=== PATIENT | female | born 1985 | race Caucasian/White ===

== ENCOUNTER 2019-12-24 00:25 | Emergency (ER) | payer SELFPAY ==
[~2019-12-24] VITALS: Ht 170.2 cm; Wt 122.7 kg
[2019-12-24 00:47] VITALS: Ht 170.2 cm; Wt 122.7 kg
[2019-12-24] MEDS ORDERED: NEXIUM20 MG PO (00:48)
[2019-12-24] MEDS ORDERED: BUSPAR5 MG PO (00:49)
[2019-12-24] MEDS ORDERED: FLUTICASONE PRO16 GM NASAL (00:49)
[2019-12-24 01:29] LABS: BASOPHILS 0.1 % (0-2); EOSINOPHILS 0.2 % (0-7); HEMATOCRIT 41.8 % (36.0-48.0); HEMOGLOBIN 13.4 g/dL (12-16); IMMATURE GRANULOCYTES 0.3 % (0-5); LYMPHOCYTES 5.6 % (15-50); MCH 27.3 pg (26.0-34.0); MCHC 32.1 g/dL (31.0-37.0); MCV 85.1 fL (80.0-100.0); MEAN PLATELET VOLUME 9.2 fL (7.4-10.4); MONOCYTES 6.7 % (2-11); NEUTROPHILS 87.1 % (40-80); PLATELET COUNT 276 10x3/uL (130-400); RBC 4.91 10x6/uL (4.00-5.40); RDW 13.6 % (11.5-14.5); WBC 17.5 10x3/uL (4.8-10.8)
[2019-12-24 01:41] LABS: CALC OSMOLALITY 274 mosm/kg (275-300); CARBON DIOXIDE 24.7 mmol/L (21.0-32.0); CHLORIDE - SERUM 101 mmol/L (98-107); GLUCOSE 136 mg/dL (74-106); POTASSIUM - SERUM 3.8 mmol/L (3.5-5.1); SODIUM 137 mmol/L (136-145); UREA NITROGEN 11 mg/dL (7-18); eGFR NON AFRICAN AMERICAN 67 mL/min (90-120)
[2019-12-24 01:57] LABS: HCG URINE NEGATIVE (NEGATIVE)
[2019-12-24 01:57] LABS: BILIRUBIN NEGATIVE (NEGATIVE); GLUCOSE NEGATIVE (NEGATIVE); KETONE NEGATIVE (NEGATIVE); NITRITE NEGATIVE (NEGATIVE); SPECIFIC GRAVITY 1.025 (1.005-1.020); UROBILINOGEN NORMAL (NORMAL)
[2019-12-24 01:58] LABS: AMORPHOUS SEDIMENT >1+ /lpf (NONE SEEN); BACTERIA FEW /hpf (NEGATIVE); EPITHELIAL CELLS 0-5 /hpf (0-5); RED CELLS - URINE 0-5 /hpf (0-5); WHITE CELLS - URINE 0-5 /hpf (NEGATIVE)
[2019-12-24 01:58] LABS: ALBUMIN 3.6 g/dL (3.4-5.0); ALKALINE PHOSPHATASE 78 U/L (30-120); ALT (SGPT) 17 U/L (10-68); AMYLASE - SERUM 25 U/L (25-115); BILIRUBIN - TOTAL 0.33 mg/dL (0.2-1.3); C-REACTIVE PROTEIN 5.2 mg/dL (0.0-0.9); FERRITIN 83 ng/mL (3-244); LIPASE 102 U/L (73-393); PROTEIN - SERUM 7.5 g/dL (6.4-8.2); TROPONIN-I < 0.017 ng/mL (0.000-0.060)
[2019-12-24 02:01] LABS: UDS - AMPHET NEGATIVE QUAL (NEGATIVE); UDS - BARB NEGATIVE QUAL (NEGATIVE); UDS - BENZO NEGATIVE QUAL (NEGATIVE); UDS - COCAINE NEGATIVE QUAL (NEGATIVE); UDS - OPIATE NEGATIVE QUAL (NEGATIVE); UDS - PCP NEGATIVE QUAL (NEGATIVE); UDS - THC NEGATIVE QUAL (NEGATIVE)
[2019-12-24 02:53] LABS: BILIRUBIN NEGATIVE (NEGATIVE); GLUCOSE NEGATIVE (NEGATIVE); KETONE NEGATIVE (NEGATIVE); NITRITE NEGATIVE (NEGATIVE); UROBILINOGEN NORMAL (NORMAL)
[2019-12-24 02:57] LABS: AMORPHOUS SEDIMENT <1+ /lpf (NONE SEEN); BACTERIA FEW /hpf (NEGATIVE); EPITHELIAL CELLS 0-5 /hpf (0-5); RED CELLS - URINE 0-5 /hpf (0-5); WHITE CELLS - URINE 0-5 /hpf (NEGATIVE)
[2019-12-24] MEDS ORDERED: FLAGYL500 MG PO (05:06)
[2019-12-24] MEDS ORDERED: LEVOFLOXACIN500 MG PO (05:06)
[2019-12-24] MEDS ORDERED: PROMETHAZINE W473 ML PO (05:06)
[2019-12-24 06:34] VITALS: BP 133/71
== END 2019-12-24 06:32 | disposition home or self-care (01) ==
LOC: D.ER 00:25
PROVIDERS: Family Medicine
DX: K52.9 Noninfective gastroenteritis and colitis, unspecified (principal); R50.9 Fever, unspecified; R11.2 Nausea with vomiting, unspecified; J02.9 Acute pharyngitis, unspecified; R51 Headache

== ENCOUNTER 2020-02-09 19:53 | Emergency (ER) | payer SELFPAY ==
[~2020-02-09] VITALS: Ht 170.2 cm; Wt 122.7 kg
[~2020-02-09 19:53] MED LIST: BUSPAR5 MG PO; FLAGYL500 MG PO; FLUTICASONE PRO16 GM NASAL; LEVOFLOXACIN500 MG PO; NEXIUM20 MG PO; PROMETHAZINE W473 ML PO
[2020-02-09 19:57] VITALS: BP 126/89; Ht 170.2 cm; Wt 122.7 kg
== END 2020-02-09 22:06 | disposition left against medical advice (07) ==
LOC: D.ER 19:53
DX: M54.5 Low back pain (principal)